=== PATIENT | female | born 1975 | race Caucasian/White ===

== ENCOUNTER → 2022-09-27 11:46 | Outpatient (CLI) | payer OTHER, SELFPAY ==
--- NOTE | 2022-09-27 11:48 | DI.RAD.S_ITS ---
PROCEDURE: XR FOOT LT MIN 3V INDICATIONS: prox 5th, 3rd, 4th metatarsal tenderness, twisted ankle TECHNIQUE: 3 views of the foot were acquired. COMPARISON: None. FINDINGS: Bones: Avulsion fracture at the dorsal talus. No additional fractures. Soft tissues: Large tibiotalar joint effusion. Achilles tendon appears normal. IMPRESSION: Avulsion fracture of the dorsal talus, no additional fractures. Dictated by: Jose Zee M.D. on 09/27/2022 at 13:12 Approved by: Jose Zee M.D. on 09/27/2022 at 13:13
--- NOTE | 2022-09-27 11:48 | DI.RAD.S_ITS ---
PROCEDURE: XR ANKLE LT 2V INDICATIONS: ankle twist, lateral and anterior tenderness TECHNIQUE: 3 views of the ankle were acquired. COMPARISON: None. FINDINGS: Bones: Avulsion fracture at the dorsal, anterior tip of the talus, seen on lateral view only. Soft tissues: Large tibiotalar joint effusion. Achilles tendon appears normal. IMPRESSION: Avulsion fracture of the dorsal talus. Dictated by: Jose Zee M.D. on 09/27/2022 at 13:11 Approved by: Jose Zee M.D. on 09/27/2022 at 13:12
== END ==
PROVIDERS: Referring Provider Student in an Organized Health Care Education/Training Program; Visit Provider Student in an Organized Health Care Education/Training Program
DX: S92.152A Displaced avulsion fracture (chip fracture) of left talus, initial encounter for closed fracture (principal); S93.402A Sprain of unspecified ligament of left ankle, initial encounter; M79.672 Pain in left foot; X50.0XXA Overexertion from strenuous movement or load, initial encounter
CPT/HCPCS: 73600; 73630

== ENCOUNTER → 2023-11-15 06:40 | Outpatient (CLI) | payer OTHER, SELFPAY ==
--- NOTE | 2023-11-15 06:42 | DI.US.S_ITS ---
PROCEDURE: US PELVIC COMPLETE INDICATIONS: HEAVY IRREGULAR MENSTRUAL BLEEDING TECHNIQUE: Real-time scanning was performed of the pelvic organs, with image documentation. Additional endovaginal scanning was necessary due to incomplete visualization of the adnexal and endometrial structures by transabdominal scanning. COMPARISON: None. FINDINGS: Uterus: Uterus is anteverted and normal in size at 8.7 x 4.6 x 4.3 cm. The myometrium is heterogeneous, with echogenic foci within the junctional zone. The endometrium measures 8 mm combined thickness. Ovaries: Right ovary not well visualized. Left ovary demonstrates a hemorrhagic follicle. Left ovary measures 4.1 x 2.8 x 2.1 cm. Other: No pathologic free abdominal or pelvic fluid. IMPRESSION: Diffuse adenomyosis. We strive to produce accurate, complete, and clear reports of imaging services. To assist us in improving patient care, this report was composed using standard report templates and voice recognition software. Therefore, it may contain abnormal punctuation, insertions and/or omissions. Occasional wrong-word or sound-alike substitutions may occur. Though we review the report and make efforts to correct it, we do recommend that the report be read carefully in proper context to recognize any text inaccuracies. Dictated by: Jose Zee M.D. on 11/15/2023 at 10:36 Approved by: Jose Zee M.D. on 11/15/2023 at 10:38
== END ==
PROVIDERS: PCP Physician Assistant; Referring Provider Obstetrics & Gynecology; Visit Provider Obstetrics & Gynecology
DX: N92.1 Excessive and frequent menstruation with irregular cycle (principal); N80.03 Adenomyosis of the uterus
CPT/HCPCS: 76830; 76856

== ENCOUNTER → 2024-05-21 17:07 | Outpatient (CLI) | payer OTHER, SELFPAY | PROVIDERS: PCP Physician Assistant; Referring Provider Internal Medicine Cardiovascular Disease; Visit Provider Internal Medicine Cardiovascular Disease | DX: R00.0 Tachycardia, unspecified (principal); I10 Essential (primary) hypertension | CPT/HCPCS: 36415; 82088; 82384; 84244 ==

== ENCOUNTER → 2024-10-18 15:39 | Outpatient (CLI) | payer OTHER, SELFPAY | PROVIDERS: PCP Physician Assistant; Referring Provider Nurse Practitioner; Visit Provider Nurse Practitioner | DX: I10 Essential (primary) hypertension (principal) | CPT/HCPCS: 36415; 82088; 84244 ==